=== PATIENT | female | born 1965 | race Caucasian/White ===

== ENCOUNTER → 2025-02-16 | Outpatient (CLI) | payer OTHER ==
[~2025-02-16] MED LIST: AMLO1TAB25 PO; BACL10TA2 PO; LIDOCAINE 1% MDV 20 ML VIAL As Ordered ONE; MIRA3350 PO; PERCOCET PO; TAMS1CAP17 PO; TRAM50TA2 PO
[2025-02-16 11:27] VITALS: TEMP 100.7
[2025-02-16 12:20] VITALS: BP 178/85; O2SAT 97
[2025-02-16 12:56] LABS: PLATELET COUNT, AUTOMATED 105 10^3/uL (150-450)
[2025-02-16 13:32] LABS: BASOPHILS 2 % (0-1); EOSINOPHILS 1 % (0-3); LYMPHOCYTES 17 % (16-44); MONOCYTES 3 % (0-5); NEUTROPHILS 68 % (28-66); PLASMA CELL 9 % (0-0); PLATELET ESTIMATE DECREASED (NORMAL)
== END ==
LOC: M IRPRO 11:20
PROVIDERS: ATTEND Internal Medicine Nephrology
DX: C90.00 Multiple myeloma not having achieved remission (principal)

== ENCOUNTER 2025-02-26 15:30 | Emergency (ER) | payer OTHER ==
[~2025-02-26] VITALS: Ht 167.6 cm; Wt 83.6 kg
[~2025-02-26 15:30] MED LIST changes: -LIDOCAINE 1% MDV 20 ML VIAL As Ordered ONE
[2025-02-26 17:33] LABS: CALCIUM LEVEL 9.2 MG/DL (8.3-10.6); CARBON DIOXIDE LEVEL 26.0 MMOL/L (20-31); CHLORIDE LEVEL 106.0 MMOL/L (98-107); CREATININE FOR GFR 3.4 MG/DL (0.55-1.30); GLOMERULAR FILTRATION RATE 14.9 (>45); POTASSIUM SERUM 3.1 MMOL/L (3.5-5.1); SODIUM LEVEL 144.0 MMOL/L (136-145)
[2025-02-26] MEDS: ONDANSETRON 4MG TAB PO ONE (19:39)
[2025-02-26] MEDS: POTASSIUM CHLORIDE 10MEQ SR TABLET PO ONE (19:40)
[2025-02-26 19:55] VITALS: TEMP 97.6; O2SAT 97
[2025-02-26 19:57] VITALS: BP 189/88
== END 2025-02-26 20:16 | disposition home or self-care (01) ==
LOC: M ED 15:30
DX: E87.6 Hypokalemia (principal); N17.9 Acute kidney failure, unspecified; S32.020A Wedge compression fracture of second lumbar vertebra, initial encounter for closed fracture; Y92.9 Unspecified place or not applicable; Y93.9 Activity, unspecified; Y99.9 Unspecified external cause status; C90.00 Multiple myeloma not having achieved remission; I10 Essential (primary) hypertension; Z88.1 Allergy status to other antibiotic agents; Z79.899 Other long term (current) drug therapy; Z79.2 Long term (current) use of antibiotics

== ENCOUNTER → 2025-03-30 | Outpatient (CLI) | payer OTHER ==
[~2025-03-30] MED LIST changes: +ACYC-438 PO; +CARV12.5 PO; +ECOT81TA5 PO; +FAMO40TA3; +FLUC-1 PO; +LEVO1TAB38 PO; +ONDA-83; +POTA-151 PO; +PROC10TA5 PO; +RENV0.8P PO; +SEVE800T3 PO; +SODI650T PO; +THAL100C PO
== END ==
LOC: M PLARAD 13:31
PROVIDERS: ATTEND Internal Medicine Gastroenterology
DX: C90.00 Multiple myeloma not having achieved remission (principal)
CPT/HCPCS: 78815; A9552

== ENCOUNTER → 2025-04-08 | Outpatient (CLI) | payer OTHER | LOC: M RAD 13:54 | PROVIDERS: ATTEND Radiology Diagnostic Radiology | DX: Z00.00 Encounter for general adult medical examination without abnormal findings (principal) ==

== ENCOUNTER → 2025-04-21 | Outpatient (POV) | payer OTHER ==
[~2025-04-21] VITALS: Ht 167.6 cm
[~2025-04-21] MED LIST changes: +ALLO100T PO; +MAGICMW SSP
[2025-04-21 14:15] VITALS: BP 148/72; O2SAT 94
== END ==
LOC: M IRPOV 14:01
PROVIDERS: ATTEND Radiology Diagnostic Radiology
DX: M84.58XA Pathological fracture in neoplastic disease, other specified site, initial encounter for fracture (principal); C90.00 Multiple myeloma not having achieved remission; R60.0 Localized edema; Z79.899 Other long term (current) drug therapy; Z88.1 Allergy status to other antibiotic agents; Z92.21 Personal history of antineoplastic chemotherapy

== ENCOUNTER → 2025-06-02 | Outpatient (POV) | payer OTHER ==
[~2025-06-02] VITALS: Ht 167.6 cm; Wt 80.0 kg
[~2025-06-02] MED LIST changes: +DEXA4TA PO; +ELIQ5TAB PO; +FLUC-1; +FURO40TA2; +FURO40TA2 PO; +FURO80TA2 PO; +ONDA-84 PO; +POTA-141 PO; +POTA20LI16 PO; +POTA4.25 PO; +REVL15CA PO; +SPIR-10; +SPIR100T3; +SPIR50TA4 PO
[2025-06-02 13:45] VITALS: BP 184/84; O2SAT 100
== END ==
LOC: M IRPOV 13:42
PROVIDERS: ATTEND Registered Nurse School
DX: S32.018A Other fracture of first lumbar vertebra, initial encounter for closed fracture (principal); S32.028A Other fracture of second lumbar vertebra, initial encounter for closed fracture; R60.0 Localized edema; N18.32 Chronic kidney disease, stage 3b; Z88.1 Allergy status to other antibiotic agents